=== PATIENT | male | born 1990 | race Caucasian/White ===

== ENCOUNTER 2016-09-16 16:19 | Emergency (ER) | payer BC ==
[~2016-09-16] VITALS: Ht 180.3 cm; Wt 93.0 kg
[2016-09-16 18:02] LABS: BASO % 0.3 % (0.0-1.0); EOS # 0.1 K/mm3 (0.0-0.50); EOS % 1.2 % (0.0-3.0); LARGE UNSTAINED CELL # 0.2 K/mm3 (0.0-0.4); LARGE UNSTAINED CELL % 1.9 % (0.0-4.0); LYMPH # 2.5 K/mm3 (1.5-6.5); LYMPH % 24.5 % (24.0-44.0); MEAN CORPUSCULAR HGB CONC 34.2 g/dl (32.0-36.5); MEAN CORPUSCULAR VOLUME 84.8 fl (80.0-96.0); MONO # 0.6 K/mm3 (0.0-0.8); MONO % 5.6 % (0.0-5.0); NEUTROPHILS # 6.7 K/mm3 (1.8-7.7); NEUTROPHILS % 66.5 % (36.0-66.0); PLATELET COUNT, AUTOMATED 247 k/mm3 (150-450); RED CELL DISTRIBUTION WIDTH 12.3 % (11.5-14.5); WHITE BLOOD COUNT 10.1 K/mm3 (4.0-10.0)
[2016-09-16 18:17] LABS: METHADONE URINE NEGATIVE (NEGATIVE)
[2016-09-16 18:19] LABS: ANION GAP 7 MEQ/L (8-16); BLOOD UREA NITROGEN 11 MG/DL (7-18); CALCIUM LEVEL 9.2 MG/DL (8.5-10.1); CARBON DIOXIDE LEVEL 26 MEQ/L (21-32); CHLORIDE LEVEL 109 MEQ/L (98-107); CREATININE FOR GFR 1.04 MG/DL (0.70-1.30); FREE T4 0.95 NG/DL (0.76-1.46); GLOMERULAR FILTRATION RATE > 60.0 (>60); GLUCOSE, FASTING 91 MG/DL (70-105); POTASSIUM SERUM 3.8 MEQ/L (3.5-5.1); SODIUM LEVEL 142 MEQ/L (136-145)
[2016-09-16 19:19] VITALS: BP 128/79
--- NOTE | 2016-09-16 21:58 | REP ---
CHEST PA AND LATERAL: 09/16/2016. Clinical history: Chest pain. No prior studies. The lungs are well inflated without infiltrate, effusion. There is no pneumothorax and no pneumothorax, pneumomediastinum. No infiltrate, atelectasis or mass. Heart, mediastinal and hilar contours normal. Bones intact. No free air under the diaphragm. Impression: 1. No acute cardiopulmonary change. Signed by Greg Alvarez MD 09/17/2016 08:08 P
--- NOTE | 2016-09-17 08:35 | ECGEPIP ---
Stationary ECG Study [facility] - ED Test Date: 2016-09-16 Pat Name: NICKO FIGUEROA Department: Room: - Gender: M [employer] Machine Operator: kaitlin : 1990 Requested By: GLORIA Forbes Order Number: [id number] Reading MD: Kathrine Bernardo Measurements Intervals [place] Rate: 92 P: 39 CT: 127 QRS: 67 QRSD: 117 T: 38 QT: 343 QTc: 425 Interpretive Statements SINUS RHYTHM WITH SINUS ARRHYTHMIA INCOMPLETE RIGHT BUNDLE BRANCH BLOCK NO PRIOR FOR COMPARISON Electronically Signed On 09-17-2016 8:34:51 EDT by Kathrine Bernardo
== END 2016-09-16 19:23 | disposition home or self-care (01) ==
LOC: M ED 17:26
DX: R07.89 Other chest pain (principal); Z88.8 Allergy status to other drugs, medicaments and biological substances

== ENCOUNTER 2018-05-09 16:10 | Emergency (ER) | payer BC ==
[2018-05-09] MEDS: GI COCKTAIL 50ML BTL(HYOSCYAMINE/MAALOX/LIDOCAINE VISCOUS)(1:3:1) PO (17:34)
[2018-05-09] MEDS: NAPROXEN 250 MG TAB PO (17:34)
[2018-05-09 17:37] LABS: BASO # 0.1 10^3/uL (0.0-0.2); BASO % 0.5 % (0.0-1.0); EOS # 0.3 10^3/uL (0.0-0.50); EOS % 2.6 % (0.0-3.0); HEMATOCRIT 47.8 % (42.0-52.0); HEMOGLOBIN 16.3 g/dl (13.5-17.5); IMMATURE GRANULOCYTE % 0.4 % (0-3.0); LYMPH # 2.7 10^3/uL (1.5-6.5); LYMPH % 23.1 % (24.0-44.0); MEAN CORPUSCULAR HEMOGLOBIN 28.7 pg (27.0-33.0); MEAN CORPUSCULAR HGB CONC 34.1 g/dl (32.0-36.5); MEAN CORPUSCULAR VOLUME 84.3 fl (80.0-96.0); MONO # 0.8 10^3/uL (0.0-0.8); MONO % 6.5 % (0.0-5.0); NEUTROPHILS # 7.8 10^3/uL (1.8-7.7); NEUTROPHILS % 66.9 % (36.0-66.0); PLATELET COUNT, AUTOMATED 237 10^3/uL (150-450); RED BLOOD COUNT 5.67 10^6/uL (4.30-6.10); WHITE BLOOD COUNT 11.7 10^3/uL (4.0-10.0)
[2018-05-09] MEDS: ONDANSETRON 4 MG ORAL DISINTEGRATING TAB (Q0162 PER 1MG) PO (17:46)
[2018-05-09 18:03] LABS: ANION GAP 7 MEQ/L (8-16); BLOOD UREA NITROGEN 17 MG/DL (7-18); CALCIUM LEVEL 9.1 MG/DL (8.5-10.1); CARBON DIOXIDE LEVEL 27 MEQ/L (21-32); CHLORIDE LEVEL 104 MEQ/L (98-107); CK-MB VALUE MASS < 1.0 NG/ML (<3.6); CPK CREATINE PHOSPHOKINASE 147 U/L (39-308); GLOMERULAR FILTRATION RATE > 60.0 (>60); GLUCOSE, FASTING 96 MG/DL (70-100); MB/CK RELATIVE INDEX 0.68 (< OR =4); POTASSIUM SERUM 4.2 MEQ/L (3.5-5.1); SODIUM LEVEL 138 MEQ/L (136-145); TROPONIN I < 0.02 NG/ML (< 0.10)
== END 2018-05-09 19:12 | disposition home or self-care (01) ==
LOC: M ED 16:10
DX: R07.89 Other chest pain (principal); Z88.8 Allergy status to other drugs, medicaments and biological substances
CPT/HCPCS: Q0162

== ENCOUNTER → 2024-01-08 | Outpatient (REF) | payer BC ==
[~2024-01-08] MED LIST: NAPR-837 PO; RANI15TA PO
[2024-01-08 19:31] LABS: APPEARANCE, URINE CLEAR (CLEAR); BACTERIA, URINE AUTO NEGATIVE (NEGATIVE); BILIRUBIN, URINE AUTO NEGATIVE (NEGATIVE); BLOOD, URINE BLOOD NEGATIVE (NEGATIVE); COLOR, URINE YELLOW (YELLOW); GLUCOSE, URINE (UA) AUTO NEGATIVE (NEGATIVE); KETONE, URINE AUTO NEGATIVE (NEGATIVE); LEUKOCYTE ESTERASE, URINE AUTO NEGATIVE (NEGATIVE); MUCUS, URINE SMALL (NEGATIVE); NITRITE, URINE AUTO NEGATIVE (NEGATIVE); PROTEIN, URINE AUTO NEGATIVE (NEGATIVE); RBC, URINE AUTO 0 /HPF (0-3); SPECIFIC GRAVITY URINE AUTO 1.029 (1.002-1.035); SQUAMOUS EPITHELIAL CELL UR AU 0 /HPF (0-6); UROBILINOGEN, URINE AUTO 0.2 mg/dL (0.0-2.0); WBC, URINE AUTO 1 /HPF (0-3)
[2024-01-08 21:19] LABS: Trichomonas vaginalis (AMP) NOT DETECTED (NEGATIVE)
[2024-01-08 21:42] LABS: GC DNA AMPLIFICATION NEGATIVE (NEGATIVE)
== END ==
LOC: M LAB REF 19:06
PROVIDERS: ATTEND Physician Assistant
DX: N39.0 Urinary tract infection, site not specified (principal)

== ENCOUNTER → 2024-01-08 | Outpatient (CLI) | payer BC | LOC: M RAD 16:11 | PROVIDERS: ATTEND Physician Assistant | DX: M54.9 Dorsalgia, unspecified (principal); N50.82 Scrotal pain ==

== ENCOUNTER 2025-04-25 20:23 | Emergency (ER) | payer BC, SELFPAY ==
[~2025-04-25] VITALS: Ht 172.7 cm; Wt 103.1 kg
[2025-04-25 22:21] VITALS: BP 143/85; TEMP 97.8; O2SAT 99
[2025-04-25 22:54] LABS: KETONE, URINE AUTO RFX NEGATIVE (NEGATIVE); LEUKOCYTE ESTERASE UR AUTO RFX NEGATIVE (NEGATIVE); MUCUS, URINE RFX SMALL (NEGATIVE); NITRITE, URINE AUTO RFX NEGATIVE (NEGATIVE); RBC, URINE AUTO RFX 0 /HPF (0-3); SQUAM EPITHELIAL CELL UR AURFX 0 /HPF (0-6); WBC, URINE AUTO RFX 1 /HPF (0-3)
[2025-04-25 23:55] LABS: Trichomonas vaginalis (AMP) NOT DETECTED (NEGATIVE)
[2025-04-26 00:19] LABS: GC DNA AMPLIFICATION NEGATIVE (NEGATIVE)
== END 2025-04-25 22:35 | disposition left against medical advice (07) ==
LOC: M ED 20:23
DX: Z53.21 Procedure and treatment not carried out due to patient leaving prior to being seen by health care provider (principal)